=== PATIENT | female | born 1970 | race African-American/Black ===

== ENCOUNTER 2022-09-19 00:30 | Inpatient (IN) | payer OTHER ==
[~2022-09-19] VITALS: Ht 170.2 cm; Wt 105.7 kg
--- NOTE | 2022-09-19 00:30 | NUR ---
PT [facility] ER BED
[2022-09-19] MEDS ORDERED: NACL 0.9% 1,000 ML IV ONE (00:45)
[2022-09-19 00:46] VITALS: BP 129/67
[2022-09-19] MEDS ORDERED: TRAZ-343 PO (01:16)
[2022-09-19] MEDS ORDERED: METF-350 PO (01:16)
[2022-09-19] MEDS ORDERED: ARIP2TAB2 PO (01:16)
[2022-09-19 01:43] LABS: ALBUMIN 3.6 g/dL (3.4-5.0); ANION GAP 11.5 (8-16); ASPARTATE AMINOTRANSFERASE 10 U/L (15-37); CHLORIDE 98 mmol/L (98-107); CREATININE 1.1 mg/dL (0.6-1.3); GFR ARICAN-AMERICAN 67 mL/min (>90); GLUCOSE 123 mg/dL (74-106); LIPASE 138 U/L (73-393); SODIUM SERUM 138 mmol/L (136-145); TOTAL BILIRUBIN 0.6 mg/dL (0.0-1.0); UREA NITROGEN, BLOOD 21 mg/dL (7-18)
[2022-09-19 01:50] LABS: POTASSIUM 2.5 mmol/L (3.5-5.1)
[2022-09-19 01:56] LABS: BASOPHILS # (AUTO) 0.1 K/uL (0.00-0.22); BASOPHILS % (AUTO) 0.6 % (0.0-2.0); EOSINOPHILS # (AUTO) 0.2 K/uL (0-0.4); EOSINOPHILS % (AUTO) 1.9 % (0.0-4.0); HEMATOCRIT 35.5 % (36-48); HEMOGLOBIN 11.8 g/dL (12.0-16.0); LYMPHOCYTES # (AUTO) 2.3 K/uL (2.5-16.5); LYMPHOCYTES % (AUTO) 26.9 % (20.5-51.1); MEAN CORPUSCULAR HEMOGLOBIN 25 pg (27-31); MEAN CORPUSCULAR HGB CONC 33 g/dL (33-37); MEAN CORPUSCULAR VOLUME 75.5 fL (80-94); MONOCYTES # (AUTO) 0.4 K/uL (0.8-1.0); MONOCYTES % (AUTO) 4.2 % (1.7-9.3); NEUTROPHILS # (AUTO) 5.6 K/uL (1.8-7.7); NEUTROPHILS % (AUTO) 66.4 % (42.2-75.2); PLATELET COUNT (AUTO) 307 K/uL (140-450); RED BLOOD CELL COUNT(AUTO) 4.69 MIL/uL (4.20-5.40); RED CELL DISTRIBUTION WIDTH 15.3 % (11.6-13.7); WHITE BLOOD COUNT (AUTO) 8.5 K/uL (4.8-10.8)
[2022-09-19] MEDS ORDERED: POTASSIUM CHLORIDE 10 MEQ TABER PO ONE (02:25)
[2022-09-19] MEDS ORDERED: KCL 20 MEQ IN 100 mL PREMIX 100 ML IV ONE (02:25)
--- NOTE | 2022-09-19 02:25 | NUR ---
spoke with sister in law and wanted updates on pt. will call back for POC and if pt is DC
--- NOTE | 2022-09-19 03:00 | NUR ---
Patient resting in bed, A/Ox4, chest rise and fall symmetrical, no c/o pain or s/s of distress, patient on monitor.
[2022-09-19] MEDS ORDERED: MAG SULF 2000 MG/WATER PREMIX 50 ML IV ONE (03:50)
--- NOTE | 2022-09-19 04:50 | NUR ---
Patient resting in bed, A/Ox4, chest rise and fall symmetrical, no c/o pain or s/s of distress, patient on monitor.
[2022-09-19] MEDS ORDERED: HYDR-4004 PO (05:01)
[2022-09-19] MEDS ORDERED: FERR325E14 PO (05:01)
[2022-09-19] MEDS ORDERED: ROSU5TAB PO (05:01)
[2022-09-19] MEDS ORDERED: BACL10TA4 PO (05:01)
[2022-09-19] MEDS ORDERED: ONDANSETRON 4 MG/2 ML VIAL IVP PRN (06:10)
[2022-09-19] MEDS ORDERED: POTASSIUM CHLORIDE 10 MEQ TABER PO PRN (06:10)
[2022-09-19] MEDS ORDERED: MAG SULF 2000 MG/WATER PREMIX 50 ML IV PRN (06:10)
[2022-09-19] MEDS ORDERED: KCL 20 MEQ IN 100 mL PREMIX 200 ML IV PRN (06:10)
[2022-09-19] MEDS ORDERED: ACETAMINOPHEN 325 MG TAB PO PRN (06:10)
--- NOTE | 2022-09-19 06:33 | NUR ---
Patient resting in bed, A/Ox4, chest rise and fall symmetrical, no c/o pain or s/s of distress, patient on monitor.
--- NOTE | 2022-09-19 07:26 | NUR ---
Change of shift report given to AM Shift Nurse Maya JENKINS. AM Shift Nurse Maya RN verbalized understanding of report, no further questions.
[2022-09-19] MEDS: NACL 0.9% 1,000 ML IV SCH ×2 (08:00→19:02)
[2022-09-19] MEDS: DOCUSATE SODIUM 100 MG GELCAP PO SCH (09:00)
--- NOTE | 2022-09-19 09:29 | NUR ---
PATIENT HAS BEEN SCREENED AND CATEGORIZED MODERATE NUTRITION RISK. PATIENT WILL BE SEEN WITHIN 3-5 DAYS OF ADMISSION. REVIEWED BY MARQUITA FORD RD
--- NOTE | 2022-09-19 11:39 | NUR ---
ATE BREAKFAST, TOLERATED WELL. DENIES DIZZINESS RO ANY S/S
--- NOTE | 2022-09-19 13:44 | NUR ---
WALKED TO BR WITH STEADY GAIT, DENIES DIZZINESS OR WEAKNESS VOIDED URINE, HAD A SMALL BM INCONTINENCE IN BED
[2022-09-19 16:32] LABS: APPEARANCE,URINE CLEAR (CLEAR); BILIRUBIN,URINE NEGATIVE (NEGATIVE); BLOOD, URINE NEGATIVE (NEGATIVE); COLOR,URINE YELLOW (YELLOW); LEUKOCYTE ESTERASE ,URINE NEGATIVE (NEGATIVE); NITRITE, URINE NEGATIVE (NEGATIVE); PH,URINE 6.5 (5.0-9.0); UGLUCOSE NEGATIVE (NEGATIVE)
--- NOTE | 2022-09-19 17:37 | NUR ---
PT SUPERVISED TO BATHROOM, VOIDED URINE. AMBULATES WITH STEADY GAIT, DENIES S/S. NO SYNCOPAL EPISODES SINCE ARRIVAL
--- NOTE | 2022-09-19 19:25 | NUR ---
SBAR TO JUN JENKINS
--- NOTE | 2022-09-19 19:40 | NUR ---
Patient resting in bed, A/Ox4, chest rise and fall symmetrical, no c/o pain or s/s of distress, patient on monitor.
--- NOTE | 2022-09-19 20:34 | NUR ---
Patient resting in bed, A/Ox4, chest rise and fall symmetrical, no c/o pain or s/s of distress, patient on monitor.
--- NOTE | 2022-09-19 22:12 | NUR ---
Patient resting in bed, A/Ox4, chest rise and fall symmetrical, no c/o pain or s/s of distress, patient on monitor.
--- NOTE | 2022-09-20 00:45 | NUR ---
Patient resting in bed, A/Ox4, chest rise and fall symmetrical, no c/o pain or s/s of distress, patient on monitor.
--- NOTE | 2022-09-20 02:00 | NUR ---
Patient resting in bed, A/Ox4, chest rise and fall symmetrical, no c/o pain or s/s of distress, patient on monitor.
--- NOTE | 2022-09-20 04:23 | NUR ---
Maryan long in [facility] - 09/20/22 at 0736 by [id number] Patient to restroom.
--- NOTE | 2022-09-20 04:23 | NUR ---
Patient to restroom.
--- NOTE | 2022-09-20 04:23 | NUR ---
Patient resting in bed, A/Ox4, chest rise and fall symmetrical, no c/o pain or s/s of distress, patient on monitor.
--- NOTE | 2022-09-20 04:25 | NUR ---
Patient to room.
--- NOTE | 2022-09-20 06:20 | NUR ---
Patient resting in bed, A/Ox4, chest rise and fall symmetrical, no c/o pain or s/s of distress, patient on monitor.
--- NOTE | 2022-09-20 07:20 | NUR ---
Change of shift report given to AM shift Nurse Chidi JENKINS. AM shift Nurse Chidi RN verbalized understanding of report, no further questions.
[2022-09-20] MEDS: NACL 0.9% 1,000 ML IV SCH (07:42)
[2022-09-20 07:44] LABS: BASOPHILS % (AUTO) 0.6 % (0.0-2.0); EOSINOPHILS # (AUTO) 0.2 K/uL (0-0.4); EOSINOPHILS % (AUTO) 2.4 % (0.0-4.0); HEMATOCRIT 33.9 % (36-48); HEMOGLOBIN 11.2 g/dL (12.0-16.0); MEAN CORPUSCULAR HEMOGLOBIN 26 pg (27-31); MEAN CORPUSCULAR HGB CONC 33 g/dL (33-37); MEAN CORPUSCULAR VOLUME 77.9 fL (80-94); MONOCYTES # (AUTO) 0.3 K/uL (0.8-1.0); MONOCYTES % (AUTO) 5.2 % (1.7-9.3); NEUTROPHILS # (AUTO) 4.1 K/uL (1.8-7.7); NEUTROPHILS % (AUTO) 61.8 % (42.2-75.2); PLATELET COUNT (AUTO) 303 K/uL (140-450); RED BLOOD CELL COUNT(AUTO) 4.35 MIL/uL (4.20-5.40); RED CELL DISTRIBUTION WIDTH 15.5 % (11.6-13.7); WHITE BLOOD COUNT (AUTO) 6.6 K/uL (4.8-10.8)
--- NOTE | 2022-09-20 08:45 | NUR ---
REPORT RECEIVED FROM ROMEO JENKINS. ASSUMED CARE AT THIS TIME
--- NOTE | 2022-09-20 08:46 | NUR ---
pt awake and at rest . denies pain at this time. respirations even and unlabored. on campus monitor. bed at lowest position, bed rails upx2.
[2022-09-20] MEDS: DOCUSATE SODIUM 100 MG GELCAP PO SCH (09:19)
--- NOTE | 2022-09-20 09:35 | NUR ---
pt provided w/ breakfast . pt awake and eating in bed
[2022-09-20 09:36] LABS: CARBON DIOXIDE 27.7 mmol/L (21-32); CREATININE 0.8 mg/dL (0.6-1.3)
[2022-09-20 10:21] LABS: POTASSIUM 2.7 mmol/L (3.5-5.1)
--- NOTE | 2022-09-20 11:38 | NUR ---
PAGED DR CRESPO TO INFORM HIM OF CRITICAL POTASSIUM. RECEIVED TORB ORDER OF POTASSIUM 20MEQ PREMIX AND 60MEQ PO KDUR. ORDERS PLACED.
[2022-09-20] MEDS ORDERED: POTASSIUM CHLORIDE 10 MEQ TABER PO SCH (11:50)
--- NOTE | 2022-09-20 14:55 | NUR ---
Note mercedes in ED - 09/20/22 at 1744 by [email or web address] Patient INPATIENT discharged . Written and verbal after care instructions FOR HYPOKALEMIA AND DEHYDRATION given and explained. Patient verbalized understanding. Ambulatory with steady gait. All questions addressed prior to discharge. Advised to follow up with PMD.
[2022-09-20 15:40] LABS: ANION GAP 9.9 (8-16); CARBON DIOXIDE 27.3 mmol/L (21-32); CREATININE 0.8 mg/dL (0.6-1.3); POTASSIUM 3.2 mmol/L (3.5-5.1)
--- NOTE | 2022-09-20 16:02 | NUR ---
PAGED DR CRESPO TO UPDATE HIM OF POTASSIUM OF 3.2 FOR PENDING DC. Addendum: 09/20/22 at 1648 by [email or web address] RECEIVED CALL BACK FROM DR CRESPO [id number]- DISCHARGE PACKET PRINTED.
[2022-09-20 16:33] VITALS: BP 128/68
--- NOTE | 2022-09-20 16:50 | NUR ---
IV removed, catheter intact and site benign. Applied folded 4x4 gauze and tape to stop bleeding.
--- NOTE | 2022-09-20 16:55 | NUR ---
Patient INPATIENT discharged . Written and verbal after care instructions FOR HYPOKALEMIA AND DEHYDRATION given and explained. Patient verbalized understanding. Ambulatory with steady gait. All questions addressed prior to discharge. Advised to follow up with PMD.
--- NOTE | 2022-09-20 16:56 | NUR ---
The patient's care was reviewed and supervised by Elizabeth Montano RN.
--- NOTE | 2022-09-23 13:40 | NUR ---
MICHAEL BACK CALLED DR [facility] LOCATED AT [address] [place] [address], SPOKE WITH CHRISTEL TO SEE IF PT HAD MADE AN APPOINTMENT BUT IT LOOKS LIKE PT ALREADY TRIED TO MAKE APPT BUT THE OFFICE IS JUST WAITING FOR THE MEDICAL RECORDS THAT THEY REQUESTED THEN WILL MAKE APPT WITH PT DIRECTLY
== END 2022-09-20 16:55 | disposition home or self-care (01) | DRG 204 ==
LOC: MED 00:30 → OBSVTOIN 06:12 → MTU 06:12 → MMU 18:26 → MTU 09-20 08:39
PROVIDERS: ADMIT Hospitalist; ATTEND Hospitalist
DX: I95.1 Orthostatic hypotension (principal); E11.9 Type 2 diabetes mellitus without complications; F32.A Depression, unspecified; F41.9 Anxiety disorder, unspecified; Z20.822 Contact with and (suspected) exposure to COVID-19; I10 Essential (primary) hypertension; E87.6 Hypokalemia; E83.42 Hypomagnesemia; Z79.899 Other long term (current) drug therapy
CPT/HCPCS: 36415; 71045; 73610; 80048; 80053; 81003; 83690; 83735; 84484; 85025; 93005; 96361; 96365; 96366; 99291; J3475; J3480; Q0092